=== PATIENT | male | born 1985 | race Caucasian/White ===

== ENCOUNTER 2019-03-04 11:12 | Emergency (ER) | payer MEDICAID, SELFPAY ==
[2019-03-04 11:17] VITALS: BP 167/82; PULSE 83; RESP 18; TEMP 36.7; O2SAT 96
--- NOTE | 2019-03-04 11:26 | DI.CT_ITS ---
EXAM: CT RENAL COLIC WO CLINICAL HISTORY: L flank pain, hx of stones TECHNIQUE: CT examination of the abdomen and pelvis was performed without contrast administration. FINDINGS: Visualized lung bases are clear. There is hepatic steatosis. Otherwise liver, spleen, pancreas, gal lbladder and bile ducts are normal. Abdominal aorta is normal. No significant abdominal wall hernia seen. No significant abdominal or pelvic adenopathy seen. Appendix is normal. No evidence diverticulitis or bowel obstruction. Adrenals appear normal bilaterally. There is a right lower pole renal cyst and left midpole renal cy st. No left nephrolithiasis seen. There is no evidence of right-sided nephrolithiasis, ureterolithiasis or hydronephrosis. On the left, there is hydronephrosis and hydroureter to the level of the ureterovesical junction wher e there is an obstructing intramural stone measuring about 8 x 2 millimeters in diameter. IMPRESSION: Obstructing intramural ureterovesical junction stone on the left, this measures about 8 x 2 millimete rs in diameter. There is mild to moderate left hydronephrosis and hydroureter.
--- NOTE | 2019-03-04 11:26 | W.ED.GENAD ---
Discharge Plan Disposition Patient Disposition: HOME Condition: Improving Discharge Details Chief Complaint: FlankPain Clinical Impression: Kidney stone on left side Primary Care Provider: Obdulio Levy ED Provider: Carlos Deluca Home Meds and New Rx's Prescriptions: New hydromorphone 2 mg tablet 2 mg PO Q6H PRN (Reason: pain) Qty: 7 RF: 0 Continued ibuprofen [IBU] 800 mg tablet 800 mg PO BID RF: 0 sertraline 50 mg tablet 50 mg PO DAILY Qty: 30 RF: 2 tamsulosin [Flomax] 0.4 mg capsule 0.4 mg PO DAILY Qty: 7 RF: 0 Discharge Instructions Instructions: Kidney Stones (ED) Additional Instructions: Please strain your urine and take any stone that you have found into clinic to be analyzed. Continue your regular medications including Flomax once daily. Ibuprofen as needed for pain with hydromorphone if needed for severe pain. No alcohol, driving, operating machinery while using hydromorphone. Return to develop a fever, worsening pain, or or any other acute concerns. Home to rest today. Small, frequent sips of fluids to maintain hydration. We have placed a referral for you to be seen again in urology clinic. Please call the office in the next 1 to 2 days for an appointment time. Referrals: Prasanna Payne MD [ [facility] STAFF PHYSICIAN] - Medical Decision Making 33-year-old male with a history of left renal colic, most recently with CT scan obtained 02/02/2019 at [facility] which demonstrated a distal 5 mm stone. Now with recurrent left-sided flank pain this morning. He arrives afebrile, slightly hypertensive, and mild to moderate distress. Differential diagnosis includes ureteral colic, UTI, bowel obstruction or intraperitoneal process. IV access established, patient given fluid bolus, ketorolac as well as hydromorphone, referred for laboratory testing, urinalysis, CT images. Urinalysis with moderate blood, trace leuk esterase, mixed cells present. CT does reveal an 8 x 2 mm left UVJ stone. He is improving with fluids. The stone seen on CT today is characterized different than that from CT of mid January it is noted to be 5 x [address] him on Flomax. He is consented for the use of narcotic analgesia if needed for severe pain at home. He has been seen in urology clinic previously and we will refer her back for recheck. He understands homecare as well as return precautions. HPI General Mode of arrival: ambulatory. Date/Time Provider Initiated Documentation: 03/04/19 11:16. Limitations to Documentation: no limitations. Information obtained by: patient. History of Present Illness described as moderate, Quality is described as constant, and is localized to the back, abdomen and left. Patient reports radiation to back. Patient started experiencing this hour(s) and it has been constant and colicky. No relieving factors improve symptom(s), No exacerbating factors reported . Patient notes denies fever/chills, loss of appetite and nausea/vomiting. Patient did receive the following treatments prior to arrival, none Related Data Home Medications Medication Instructions Recorded Confirmed ibuprofen 800 mg tablet 800 mg PO BID tab 02/04/19 03/04/19 sertraline 50 mg tablet 50 mg PO DAILY #30 tab 02/04/19 03/04/19 hydromorphone 2 mg PO Q6H PRN #7 tab 03/04/19 tamsulosin [Flomax] 0.4 mg PO DAILY #7 cap 03/04/19 Previous Rx's Medication Instructions Recorded sertraline 50 mg tablet 50 mg PO DAILY #30 tab 02/04/19 hydromorphone 2 mg PO Q6H PRN #7 tab 03/04/19 tamsulosin [Flomax] 0.4 mg PO DAILY #7 cap 03/04/19 Allergies Allergy/AdvReac Type Severity Reaction Status Date / Time aspirin Allergy Severe ANAPHYLAXIS Verified 03/04/19 11:27 doxycycline AdvReac Severe GI UPSET Verified 03/04/19 11:27 General Stated Complaint: FlankPain CURLY: 3 Review of Systems Review of Systems Narrative: 6 systems reviewed and otherwise negative [facility] Medical History Anxiety disorder (Acute) Kidney stone on left side (Acute) 02/02/19; [facility];increase in spleen and liver noted. Obesity (Chronic) Social History Smoking/Tobacco Use Status: Never Alcohol Intake: current Alcohol Intake frequency: holidays/special occasions only Drug use: Never Additional Social history: unable to assess privately Exam Narrative Exam Narrative: GEN: awake, alert, oriented 3. Pleasant, well groomed, interactive. HEAD: Normocephalic, atraumatic ENT: Mucous membranes moist, oropharynx unremarkable, External ear exam unremarkable EYES: PERRL, EOMI NECK: Full ROM, no MAXIMO, no menigismus CHEST/RESP: Nontender, clear to auscultation bilateral, no wheeze/rhonchi/rales CARDIOVASCULAR: RRR, no murmur, rub jamaal. 2+ Rad pulse bilateral ABDOMEN: Soft, minimal left mid abdomen pain with palpation, no rebound or guarding, no mass. +Bowel sounds EXT: Full ROM, no edema, no rash Neuro: Grossly normal neurologic exam, conversant, interactive. Psych: Speech fluent, thoughts congruent, affect normal Course Vital Signs Vital signs: Vital Signs Temperature 36.7 C 03/04/19 11:17 Pulse 83 03/04/19 11:17 Respiratory Rate 18 03/04/19 11:17 Blood Pressure 167/82 H 03/04/19 11:17 Pulse Oximetry 96 03/04/19 11:17 Temperature 36.7 C 03/04/19 11:17 Temperature Source Skin 03/04/19 11:17 Pulse 83 03/04/19 11:17 Respiratory Rate 18 03/04/19 11:17 Respiratory Effort Non-Labored 03/04/19 11:24 Blood Pressure 167/82 H 03/04/19 11:17 Blood Pressure Position Sitting 03/04/19 11:17 Pulse Oximetry 96 03/04/19 11:17 Oxygen Delivery Method Room Air 03/04/19 11:17 Oxygen Flow Rate 0 03/04/19 11:17 Pain Level 8 03/04/19 11:24
[2019-03-04 11:34] LABS: Bilirubin Negative (Negative); Blood Moderate (Negative); Clarity Clear (Clear); Glucose Negative (Negative); Ketones Negative (Negative); Leukocyte Esterase Trace (Negative); Nitrite Negative (Negative); Urobilinogen 0.2 EU/dL (Up TO 0.2); pH 6.5 (5-8)
[2019-03-04 11:40] LABS: Absolute Basophil Count 0.06 k/cumm (0.0-0.2); Absolute Eosinophil Count 0.26 k/cumm (0.0-0.7); Absolute Lymphocyte Count 1.85 k/cumm (1.2-3.4); Absolute Monocyte Count 0.49 k/cumm (0.11-0.7); Absolute Neutrophil Count 7.36 k/cumm (1.2-6.7); Basophils % 0.6; Eosinophils % 2.6; HCT 45.8 % (40.0-50.0); HGB 15.8 g/dL (13.5-17.5); Lymphocytes % 18.5; Mean Corp. HGB Concentration 34.5 g/dL (32.0-36.0); Mean Corpuscular Hemoglobin 29.2 pg (27.0-33.0); Mean Corpuscular Volume 84.5 fL (80-95); Mean Platelet Volume 10.8 fL (8.0-11.0); Monocytes % 4.9; Neutrophils % 73.4; Platelet Count 265 x1000/uL (130-400); RBC 5.42 m/cumm (4.50-6.00); White Blood Cell Count 10.02 k/cumm (4.4-10.8)
[2019-03-04] MEDS: Normal Saline 1,000 ML 1000 ML IV (11:40)
[2019-03-04 11:42] LABS: Bacteria Few HPF (Negative); C & S Indicated? Yes; Casts Negative LPF (Negative); Crystals Negative HPF (Negative); Epithelial Cells Few HPF (Negative); Mucus Negative (Negative)
[2019-03-04] MEDS: Ketorolac 15 MG/ML VIAL IVP (11:45)
[2019-03-04 11:56] LABS: ALT 40 U/L (16-63); AST 40 U/L (15-37); Albumin 4.5 g/dL (3.4-5.0); Alkaline Phosphatase 95 U/L (46-116); Anion Gap 8.7 mmol/L (3-11); BUN 16 mg/dL (7-18); Bilirubin, Total 0.7 mg/dL (0.2-1.0); CO2 28.3 mmol/L (21.0-32.0); CREATININE 1.13 mg/dL (0.70-1.30); Calcium 9.5 mg/dL (8.5-10.1); Chloride 103 mmol/L (98-107); Glucose 142 mg/dL (70-100); Potassium 4.2 mmol/L (3.5-5.1); Sodium 140 mmol/L (136-145); Total Protein 9.1 g/dL (6.4-8.2)
[2019-03-04] MEDS: Normal Saline Flush 10 ML SYR IVP (12:10)
[2019-03-04] MEDS: HYDROmorphone 2 MG/ML VIAL (12:11)
[2019-03-04] MEDS: HYDROmorphone 2 MG/ML VIAL 0.5 MG IVP ×2 (12:42→15:00)
[2019-03-04 15:10] VITALS: BP 129/73; PULSE 60; RESP 16; TEMP 36.7; O2SAT 97
--- NOTE | 2019-03-04 15:41 | NUR.NOTE ---
Pt received 1500 NS total. Nursing Note:
--- NOTE | 2019-03-04 17:32 | NUR.NOTE ---
Nursing Note: Referral faxed to [facility]rology [facility] for follow up. Adriana Sanz.
== END 2019-03-04 15:09 | disposition home or self-care (01) ==
PROVIDERS: Emergency Provider Emergency Medicine; PCP Family Medicine
DX: N20.1 Calculus of ureter (principal); Z87.442 Personal history of urinary calculi
CPT/HCPCS: 36415; 80053; 96361; 96374; 96375; 99284; 74176; 81003; 81015; 85025; 87086; J1885

== ENCOUNTER 2019-04-03 11:12 | Outpatient (REF) | payer MEDICAID, SELFPAY ==
[2019-04-08 00:25] LABS: Source: Passed Stone
== END 2019-04-03 11:32 ==
LOC: LBN 11:12
PROVIDERS: PCP Family Medicine; Visit Provider Nurse Practitioner Gerontology
DX: N20.0 Calculus of kidney (principal)
CPT/HCPCS: 82365

== ENCOUNTER 2021-01-28 10:42 | Emergency (ER) | payer MEDICAID, SELFPAY ==
[2021-01-28] VITALS (76 sets, daily range): BP systolic 114–135; BP diastolic 59–88; PULSE 63–90; RESP 7–26; TEMP 37.8; O2SAT 88–97
--- NOTE | 2021-01-28 10:45 | RT.EKG_ITS ---
APPROVED REPORT Exam: Resting ECG Reason for Exam: chest pain Patient Location: E HR:77 bpm ECG Measurements Heart Rate 77 AXIS IN 145 P 49 QRSd 90 QRS 14 QT 380 T 32 QTc 430 Conclusion Sinus rhythm...normal P axis, V-rate 60- 99
--- NOTE | 2021-01-28 11:00 | DI.RAD_ITS ---
Exam(s) XR PORTABLE CHEST AP EXAM: XR PORTABLE CHEST AP CLINICAL HISTORY: cough, weakness, pneumonia' TECHNIQUE: 2D digital imaging was performed. COMPARISON: CR CHEST 2 VIEWS PA,LAT from 06/22/2012 CR CHEST 2 VIEWS PA,LAT from 06/22/2012 CR PORTABLE CHEST ONE VIEW from 02/02/[address] RENAL COLIC WO from 03/04/[address] RENAL COLIC WO from 03/04/2019 FINDINGS: LUNGS: Scarring left lung base. Mild blunting left costophrenic angle,, likely chronic. Question of mildly increased bilateral patchy infiltrates in both upper and lower lobes. No pneumothorax seen. HEART: Normal. MEDIASTINUM: Normal. BONES: Unremarkable. IMPRESSION: Question of mild bilateral infiltrates. DATA REPOSITORY: RADIATION DOSE DELIVERED:
--- NOTE | 2021-01-28 11:09 | W.ED.GENAD ---
Discharge Plan Disposition Patient Disposition: HOME Condition: Improving Discharge Details Clinical Impression: COVID-19 Primary Care Provider: Obdulio Levy ED Provider: Carlos Deluca Home Meds and New Rx's Prescriptions: Continued ibuprofen [IBU] 800 mg tablet 800 mg PO BID RF: 0 Discharge Instructions Instructions: Viral Syndrome (ED), Droplet Precautions (ED), COVID-19 (Coronavirus Disease 2019) (ED), COVID-19: Slow the Coronavirus Spread (ED) Additional Instructions: May monitor home oxygen 2 times today for the next 1 week. Home oximeters are available at local pharmacies [email or web address]. Measurements to be taken at rest while breathing quietly and without talking. Should be taken indoors with the device position on the middle or ring finger. Extremity should be warm prior to measurement. Do not accept the first numbers that appear on the screen but observe the readings for 30 to 60 seconds to identify the common measured value. Return if you develop oxygen levels below 90% persistently at home, or for any other acute concerns. I recommend you take vitamin D3 2000 international units daily, vitamin C 1 g twice a day, zinc 220 mg once daily for the next 10 days. May continue Tylenol as needed for aches, pains or fever. Stop taking doxycycline as you are having intolerance of the medication. Follow-up with regular doctor if not improving in 7 to 10 days time. Return to the emergency department for any acute concerns. Medical Decision Making Luciana got a negative test so probably 35-year-old male presents with 1 week of cough, congestion, production of sputum, achy diffuse muscular pain. has been seen at the [facility] emergency department twice, placed on course of doxycycline which is causing some GI upset and at times vomiting. States she is seen again last night, given a liter of fluid, and had amoxicillin added to his regimen which he has not yet started. Now presents with generalized weakness, malaise, shaking chills at home last night. He arrives to ER with a temp of 37.8, oxygenating normally with normal vital signs. Given that the patient is new to our system, has a history concerning for persistent community-acquired pneumonia for or COVID-19 infection, a repeat Covid test obtained, patient referred for chest x-ray, screening laboratories, given 1 L fluid, acetaminophen. Patient is positive for COVID-19. His blood work shows a white count of 5, hematocrit 42, platelets 175. Chemistries reassuring, with BUN 13, creatinine 1.1. Patient is improved following fluids and medications. Discussed with him his findings of viral pneumonitis secondary to COVID-19. He has a home oxygen monitor he will utilize. He is stable and improving. He does not qualify for monoclonal antibody. I did elect to treat him with a pulse dose of dexamethasone. He will be discharged home with cautions for symptoms to seek reevaluation. HPI General Mode of arrival: ambulatory. Date/Time Provider Initiated Documentation: 01/28/21 10:43. Limitations to Documentation: no limitations. Information obtained by: patient. History of Present Illness 35 year old M presents to the emergency department with the chief complaint of Persistent cough, weakness for 1 week, diagnosed with pneumonia, on doxycyc, described as moderate, Quality is described as dull, and is localized to the chest and left. Patient reports no radiation. Patient started experiencing this day(s) and it has been intermittent. No relieving factors improve symptom(s), No exacerbating factors reported . Patient notes cough, fever/chills, headaches, loss of appetite, malaise and weakness. Patient did receive the following treatments prior to arrival, other (On doxycycline) Related Data Home Medications Medication Instructions Recorded Confirmed ibuprofen 800 mg tablet 800 mg PO BID tab 02/04/19 01/28/21 Allergies Allergy/AdvReac Type Severity Reaction Status Date / Time aspirin Allergy Severe ANAPHYLAXIS Verified 01/28/21 10:58 doxycycline AdvReac Severe GI UPSET Verified 01/28/21 10:58 General Stated Complaint: RespSymp CURLY: 2 Review of Systems Narrative: Not tolerating doxycycline due to GI upset. Ongoing cough, production of sputum, fever and chills at home. See HPI, 8 systems reviewed and otherwise negative [facility] Medical History (Updated 01/28/21 @ 12:58 by Carlos Deluca MD) Anxiety disorder Kidney stone on left side 02/02/19; [facility];increase in spleen and liver noted. Obesity Social History Smoking/Tobacco Use Status: Never Smoking risk assessment performed?: Yes Alcohol Intake: current Alcohol Intake frequency: holidays/special occasions only Drug use: Never Do you feel safe at home: Yes Do you feel safe in your relationship?: Yes Additional Social history: unable to assess privately Exam Narrative Exam Narrative: GEN: awake, alert, oriented 3. Pleasant, well groomed, interactive. HEAD: Normocephalic, atraumatic ENT: Mucous membranes moist, oropharynx unremarkable, External ear exam unremarkable EYES: PERRL, EOMI NECK: Full ROM, no MAXIMO, no menigismus CHEST/RESP: Nontender, clear to auscultation bilateral, faint rhonchi left base CARDIOVASCULAR: RRR, no murmur, rub jamaal. 2+ Rad pulse bilateral ABDOMEN: Soft, nontender, no mass. +Bowel sounds EXT: Full ROM, no edema, no rash Neuro: Grossly normal neurologic exam, conversant, interactive. Psych: Speech fluent, thoughts congruent, affect normal Course Vital Signs Vital signs: Vital Signs Temperature 37.8 C H 01/28/21 10:53 Pulse 82 01/28/21 10:53 Respiratory Rate 20 01/28/21 10:53 Blood Pressure 123/76 01/28/21 10:53 Pulse Oximetry 94 01/28/21 10:53 Temperature 37.8 C H 01/28/21 10:53 Temperature Source Oral 01/28/21 10:53 Pulse 82 01/28/21 10:53 Respiratory Rate 20 01/28/21 10:53 Respiratory Effort Non-Labored 01/28/21 11:01 Respiratory Depth Normal 01/28/21 11:01 Blood Pressure 123/76 01/28/21 10:53 Blood Pressure Position Sitting 01/28/21 10:53 Pulse Oximetry 94 01/28/21 10:53 Oxygen Delivery Method Room Air 01/28/21 10:53 Oxygen Flow Rate 0 01/28/21 10:53 Pain Level 10 01/28/21 10:53
[2021-01-28 11:20] LABS: Source Nasal/Nares
[2021-01-28 11:37] LABS: Abs Immature Grans 0.01 10^3/uL (0.0-0.06); Absolute Basophil Count 0.02 10^3/uL (0.0-0.2); Absolute Eosinophil Count 0.01 10^3/uL (0.0-0.7); Absolute Lymphocyte Count 0.95 10^3/uL (1.2-3.4); Absolute Monocyte Count 0.42 10^3/uL (0.1-0.8); Absolute Neutrophil Count 3.84 10^3/uL (1.2-6.7); Basophils % 0.4; Eosinophils % 0.2; HCT 42.9 % (40.0-50.0); HGB 14.7 g/dL (13.5-17.5); Immature Grans % 0.2; Lymphocytes % 18.1; MCH 28.9 pg (27.0-33.0); MCHC 34.3 % (32.0-36.0); MCV 84.3 fL (80-95); Neutrophils % 73.1; Nucleated RBC 0 %; Platelet Count 175 10^3/uL (130-400); RBC 5.09 10^6/uL (4.36-5.78); RDW 12.5 % (11.8-14.1); RDW-SD 38.5 fL; WBC 5.25 10^3/uL (4.4-10.8)
[2021-01-28 11:44] LABS: Anion Gap 6.7 mmol/L (3-11); BUN 13 mg/dL (7-18); CO2 29.3 mmol/L (21.0-32.0); CREATININE 1.1 mg/dL (0.70-1.30); Calcium 8.6 mg/dL (8.5-10.1); Chloride 100 mmol/L (98-107); Glucose 163 mg/dL (74-106); Potassium 3.6 mmol/L (3.5-5.1); Sodium 136 mmol/L (136-145)
[2021-01-28] MEDS: Acetaminophen 500 MG TAB 1000 MG PO (11:44)
[2021-01-28] MEDS: Normal Saline 1,000 ML 1000 ML IV (11:44)
[2021-01-28 12:46] LABS: COVID-19 PCR POSITIVE (Negative)
== END 2021-01-28 13:35 | disposition home or self-care (01) ==
PROVIDERS: Emergency Provider Emergency Medicine; PCP Family Medicine
DX: U07.1 COVID-19 (principal); J12.82 Pneumonia due to coronavirus disease 2019
CPT/HCPCS: 80048; 87635; 93005; 96360; 99284; 71045; 85025; 93010

== ENCOUNTER 2021-02-08 19:54 | Outpatient (REF) | payer MEDICAID, SELFPAY | END 2021-02-08 19:55 | disposition home or self-care (01) | LOC: NCHCN 19:54 | PROVIDERS: PCP Family Medicine; Visit Provider Physician Assistant | DX: J02.9 Acute pharyngitis, unspecified (principal) | CPT/HCPCS: 87070 ==

== ENCOUNTER 2024-09-02 15:47 | Outpatient (CLI) | payer MEDICAID, SELFPAY ==
--- NOTE | 2024-09-02 15:30 | DI.RAD_ITS ---
Exam(s) XR CHEST 2V PA LATERAL EXAM: XR CHEST 2V PA LATERAL CLINICAL HISTORY: R05.9 Cough, continued cough TECHNIQUE: 2D digital imaging was performed. Two views. COMPARISON: CT CT RENAL COLIC from 12/27/[address] RENAL COLIC from 02/02/[address] RENAL COLIC WO from 03/04/2019 FINDINGS: HEART: Normal size. Aorta: Mildly tortuous PULMONARY VASCULATURE: Normal. MEDIASTINUM: Unremarkable. LUNGS: Clear. PLEURAL SPACE: No pleural effusion or pneumothorax. BONE:Unremarkable for age. SOFT TISSUES: Unremarkable. IMPRESSION: No acute abnormality. DATA REPOSITORY: RADIATION DOSE DELIVERED:
== END 2024-09-02 16:07 ==
LOC: DI 15:47
PROVIDERS: PCP Family Medicine; Visit Provider Nurse Practitioner Family
DX: R05.9 Cough, unspecified (principal)
CPT/HCPCS: 71046